=== PATIENT | female | born 1930 | race Caucasian/White ===

== ENCOUNTER 2016-08-13 14:03 | Emergency (ER) | payer MEDICARE ==
--- NOTE | ~2016-08-13 | MR122 ---
[facility] A Service of [facility] RADIOLOGY TEXT RESULTS PATIENT: CUCO FRANKEL LOCATION: [facility] : 28 UNIT #: [id number] AGE: [address]: Chuck Amaro MD SEX: F ORDER DR: [id number] [facility] [address] [place], [place] [address] [id number] E MR#: [id number] Acc #: [id number] NAME: CUCO FRANKEL : 1930 SEX: F STUDY DATE/TIME: 08/13/2016 15:02 UNIT: [facility] ROOM: STUDY DESCRIPTION: MR MRA Head Wo Contrast Attending Physician: Chuck Amaro M.D. Ordering Physician: Chuck Amaro M.D. Primary Care Physician: Clint Nava M.D. MRI CENTER REPORT This report is preliminary unless electronic signature is present. EXAM Intracranial MR angiogram HISTORY Tingling in left arm and leg for the past 2 weeks. TECHNIQUE MR angiographic imaging is performed from the skull base to the knik of Perez. FINDINGS There is poor visualization of distal vessels. This could be from motion artifact and/or from small vessel atherosclerotic disease. I favor this being motion artifact. The carotids up through the siphons are widely patent. The distal vertebrals and basilar are widely patent. No aneurysms are noted. IMPRESSION Poor visualization of the small branch vessels. This is felt to be technical rather than due to true disease. Negative intracranial MR angiogram. STAT * RESULT Dictated by... Chuck Brooke M.D. THIS IS AN ELECTRONICALLY VERIFIED REPORT Chuck Brooke M.D. at 08/13/2016 3:44 PM LEIA/brennan TD: 08/13/2016 15:37 [facility] A Service of [facility] RADIOLOGY TEXT RESULTS PATIENT: CUCO FRANEKL LOCATION: [facility] : 29 UNIT #: [id number] AGE: [address]: Chuck Amaro MD SEX: F ORDER DR: RENEA #: [id number] MRI CENTER REPORT Page 1 of 1 COPY
--- NOTE | ~2016-08-13 | MR18 ---
[facility] A Service of [facility] RADIOLOGY TEXT RESULTS PATIENT: CUCO FRANKEL LOCATION: [facility] : 29 UNIT #: [id number] AGE: [address]: Chuck Amaro MD SEX: F ORDER DR: [id number] [facility] [address] [place], [place] [address] [id number] E MR#: [id number] Acc #: [id number] NAME: CUCO FRANKEL : 1930 SEX: F STUDY DATE/TIME: 08/13/2016 14:44 UNIT: [facility] ROOM: STUDY DESCRIPTION: MR Brain Wo Contrast Attending Physician: Chuck Amaro M.D. Ordering Physician: Chuck Amaro M.D. Primary Care Physician: Clint Nava M.D. MRI CENTER REPORT This report is preliminary unless electronic signature is present. EXAM Brain MRI. DATE OF EXAM 08/13/2016 HISTORY Tingling in the left arm and leg for the past 2 weeks. TECHNIQUE Multiplanar imaging of the brain was performed including diffusion weighted images. FINDINGS On diffusion weighted images, there is no evidence of abnormal restricted diffusion to suggest a recent infarct. The routine brain images show atrophy. There are no white matter signal abnormalities. There is no evidence of mass lesion, hemorrhage or edema. Extraaxial structures are unremarkable. IMPRESSION Atrophy. No acute findings. STAT * RESULT Dictated by... Chuck Brooke M.D. THIS IS AN ELECTRONICALLY VERIFIED REPORT Chuck Brooke M.D. at 08/13/2016 3:44 PM RLF/jt [facility] A Service [facility] RADIOLOGY TEXT RESULTS PATIENT: CUCO FRANKEL LOCATION: [facility] : 28 UNIT #: [id number] AGE: [address]: Chuck Amaro MD SEX: F ORDER DR: TD: 08/13/2016 15:10 JOB #: [id number] MRI CENTER REPORT Page 1 of 1 COPY
--- NOTE | ~2016-08-13 | MR134 ---
[facility] A Service of [facility] RADIOLOGY TEXT RESULTS PATIENT: CUCO FRANKEL LOCATION: [facility] : 28 UNIT #: [id number] AGE: [address]: Chuck Amaro MD SEX: F ORDER DR: [id number] [facility] [address] [place], [place] [address] [id number] E MR#: [id number] Acc #: [id number] NAME: CUCO FRANKEL : 1930 SEX: F STUDY DATE/TIME: 08/13/2016 15:12 UNIT: [facility] ROOM: STUDY DESCRIPTION: MR MRA Neck Wo Contrast Attending Physician: Chuck Amaro M.D. Ordering Physician: Chuck Amaro M.D. Primary Care Physician: Clint Nava M.D. MRI CENTER REPORT This report is preliminary unless electronic signature is present. EXAM Cervical carotid MR angiogram 08/13/2016 HISTORY Left-sided arm and leg tingling for the past 2 weeks. TECHNIQUE MR angiographic imaging was performed across carotid bifurcations with 2-D [id number] and 3-D MRA techniques. FINDINGS Both carotid bifurcations are widely patent across the internal carotid origin with no evidence of significant stenosis by NASCET criteria. On the right side the external carotid artery is narrowed approximately 70%. Antegrade flow is seen in both vertebral arteries. IMPRESSION Right external carotid origin stenosis of about 70%. No evidence of internal carotid stenosis or bifurcation stenosis by NASCET criteria. STAT * RESULT Dictated by... Chuck Brooke M.D. THIS IS AN ELECTRONICALLY VERIFIED REPORT Chuck Brooke M.D. at 08/13/2016 3:43 PM Pa TD: 08/13/2016 15:38 JOB #: [id number] [facility] A Service of [facility] RADIOLOGY TEXT RESULTS PATIENT: CUCO FRANKEL LOCATION: [facility] : 29 UNIT #: [id number] AGE: [address]: Chuck Amaro MD SEX: F ORDER DR: MRI CENTER REPORT Page 1 of 1 COPY
[2016-08-13 13:37] LABS: BASOPHIL# 0.1 X10e3 (0-0.3); BASOPHIL% 0.8 % (0-2.5); EOSINOPHIL% 0.4 % (0.0-7.0); HEMATOCRIT 44.2 % (35.0-45.0); HEMOGLOBIN 14.4 gm/dL (12.0-16.0); LYMPHOCYTE% 8.5 % (17.0-45.0); MEAN CELL VOLUME 92.6 FL (83-96); MEAN CORPUSCULAR HEMOGLOBIN 30.2 PG (28-34); MEAN CORPUSCULAR HGB CONC 32.6 g/dL (30-36); MEAN PLATELET VOLUME 7.2 FL (6.5-11.5); MONOCYTE# 0.8 X10e3 (0-1.0); MONOCYTE% 7.3 % (3.0-12.0); NEUTROPHIL# 9.4 X10e3 (1.5-7.1); PLATELET COUNT 285 X10e3 (140-420); RED BLOOD COUNT 4.78 X10e (3.90-5.30); RED CELL DISTRIBUTION WIDTH 13.5 % (11.0-15.5); WHITE BLOOD COUNT 11.3 X10e3 (4.0-10.5)
[2016-08-13 13:38] LABS: DIFF IND NO
[2016-08-13 14:04] LABS: BUN/CREATININE RATIO 25.71; CALCIUM SERUM 9.1 mg/dL (8.4-10.2); CREATININE SERUM 0.7 mg/dL (0.6-1.4); GLOM FILT RATE Estimated 77.9 mL/min (>60); POTASSIUM 3.8 mmol/L (3.5-5.1)
== END 2016-08-13 16:21 | disposition home or self-care (01) ==
LOC: CED 14:03
PROVIDERS: Emergency Medicine
DX: R20.2 Paresthesia of skin (principal); I10 Essential (primary) hypertension
CPT/HCPCS: 36415; 70544; 70547; 70551; 80048; 85025; 99284